=== PATIENT | male | born 1990 | race African-American/Black ===

== ENCOUNTER 2018-03-01 00:17 | Emergency (ER) | payer OTHER ==
[~2018-03-01] VITALS: Ht 177.8 cm; Wt 100.2 kg
[~2018-03-01 00:17] MED LIST: ACETAMINOPHEN500 MG PO; AMOXICILLIN500 MG PO; NOHOMEMEDS; PHENERGAN-CODE120 ML PO; TESSALON PERLE100 MG PO
[2018-03-01] MEDS ORDERED: LORTAB 5-325 M1 EACH PO (02:57)
[2018-03-01] MEDS ORDERED: MOTRIN800 MG PO (02:57)
[2018-03-01 03:45] VITALS: BP 127/85
== END 2018-03-01 03:51 | disposition home or self-care (01) ==
LOC: EME 00:17
PROC: 0RSJXZZ Reposition Right Shoulder Joint, External Approach (ICD-10-PCS; principal; 2018-03-01)
DX: S43.014A Anterior dislocation of right humerus, initial encounter (principal); W10.9XXA Fall (on) (from) unspecified stairs and steps, initial encounter; F10.99 Alcohol use, unspecified with unspecified alcohol-induced disorder; F17.200 Nicotine dependence, unspecified, uncomplicated
CPT/HCPCS: 73030; 99281; 99285; J3010; J7040